=== PATIENT | male | born 1935 | race Caucasian/White ===

== ENCOUNTER 2018-08-02 13:06 | Inpatient (IN) | payer MEDICARE ==
[2018-08-02] MEDS ORDERED: Lorazepam 2 MG/ML VIAL ONE (13:22)
[2018-08-02 13:32] LABS: Bilirubin Negative (Negative); Blood, Urine Small (Negative); Clarity CLOUDY (Clear); Glucose, Urine (Dipstick) Negative (Negative); Leukocyte Large (Negative); Nitrite Negative (Negative); Protein, Urine (Dipstick) Negative (Neg-Trace); Urobilinogen 0.2 mg/dL (0.2-1.0)
[2018-08-02 13:34] LABS: Hyaline Casts/LPF 0-3 HYALINE CAST LPF (0-3 Hyaline); Pathc Cast-AUWi Flag 1.01 (0-2.49); RBC/HPF 0-3 HPF (0-3); Squamous Epithelial None Seen HPF (0-3); Yeast-AUWi Flag 105.4 (0-25.0)
[2018-08-02 13:42] LABS: Bacteria/HPF 2+ HPF (None Seen); Yeast-All Forms None Seen HPF (None Seen)
[2018-08-02 14:00] LABS: Hemoglobin 14.8 g/dL (14.0-18.0); Mean Corpuscular HGB CONC 32.4 g/dL (32.0-36.0); Mean Corpuscular Hemoglobin 31.9 pg (27.0-31.0); Mean Corpuscular Volume 98.4 fL (78.0-98.0); Mean Platelet Volume 8.8 fL (7.4-10.4); Platelet Count 173 thou/uL (130-400); RBC Distribution Width 12.4 % (11.5-14.5); Red Blood Cell (RBC) Count 4.66 mill/uL (4.70-6.10); White Blood Cell (WBC) Count 20.3 thou/uL (4.8-10.8)
[2018-08-02 14:13] LABS: ALT (SGPT) 30 U/L (8-55); AST (SGOT) 27 U/L (5-34); Albumin 4.4 g/dL (3.4-4.8); Alkaline Phosphatase 58 U/L (40-150); Anion Gap 15 mmol/L (10-20); BUN (Urea Nitrogen) 20 mg/dL (8.4-25.7); Bilirubin, Total 0.7 mg/dL (0.2-1.2); Calc. Creatinine Clearance 0 mL/min (70-130); Calcium 9.8 mg/dL (7.8-10.44); Carbon Dioxide 22 mmol/L (23-31); Chloride 105 mmol/L (98-107); Estimated GFR-MDRD 75; Globulin 3.4 g/dL (2.4-3.5); Glucose 117 mg/dL (83-110); Lipase 15 U/L (8-78); Potassium 3.9 mmol/L (3.5-5.1); Protein, Total 7.8 g/dL (5.8-8.1); Sodium 138 mmol/L (136-145)
[2018-08-02 14:18] LABS: Band 9 % (5-11); Eosinophils 1 % (0-10); Lymphocytes 15 % (21-51); MDiff Complete? YES; Metamyelocyte 2 % (0-0); Monocytes 3 % (0-10); Neutrophil 70 % (42-75); PLT Morphology Comment Appears Adequate
[2018-08-02] MEDS ORDERED: cefTRIAXone\\ROCEPHIN 1 GM VIAL ONE (14:36)
[2018-08-02] MEDS ORDERED: Acetaminophen 500 MG TAB ONE (14:46)
--- NOTE | 2018-08-02 15:30 | CT ---
CT ABDOMEN AND PELVIS WITHOUT CONTRAST: Date: 08/02/18 HISTORY: Right-sided abdominal pain and UTI. History of renal calculi. FINDINGS: Absence of oral and IV contrast reduces the sensitivity of exam, particularly for evaluation of solid organs and bowel. There are mild chronic changes in the right lung base. No pleural effusions are seen. No calcified ga llstones are identified. No free air or free fluid is noted in the abdomen or pelvis. There is a staghorn calculus in the left kidney measuring 3.2 cm in largest dimension. Associated pel vicaliceal dilatation is seen. No calculi seen in the right kidney, either ureter, or the urinary tyrone dder. No right-sided hydroureteronephrosis is identified. The prostate is enlarged. There are vascular calcifications without evidence of aneurysmal dilatation of the abdominal aorta. T here is colonic diverticulosis without evidence of diverticulitis. There are degenerative changes in the spine. IMPRESSION: 1. Obstructing staghorn calculus in the left kidney. 2. Colonic diverticulosis. 3. Prostatic enlargement. POS: MALGORZATA
--- NOTE | 2018-08-02 15:45 | HP ---
PRIMARY CARE PHYSICIAN: Dr. Xavier Eric. REASON FOR ADMISSION: Urinary tract infection, sepsis, altered mental status. HISTORY OF PRESENT ILLNESS: This is an 82-year-old male, who has underlying history of hypertension; diabetes, type 2; who has previously recurrent urinary tract infections. He has not seen a urologist in the past, but the patient was getting different, different antibiotic therapy from primary care physician. Lately, he was on Keflex. He was also tried with Omnicef and ciprofloxacin. The patient was marginally getting better, but since yesterday, patient was not feeling good. He was having a lot of abdominal pain predominantly. He reports left side as well as right side, more on the left side; pain, which is radiating to front side. He was also feeling a little bit feverish at home. He was also incoherent at home. He was getting more and more weak. He was having very poor appetite and that is why he called his son and his son brought him to emergency room for evaluation. In the emergency room the patient had fever, T-maximum 103.1. His routine blood tests showed leukocytosis with bandemia and his urinalysis is consistent with urinary tract infection. Patient was also confused when I saw in the emergency room. Before this, patient's quality of life is good. He was driving, he was able to do all daily livings by himself. ALLERGIES: IODINE and PENICILLIN. CURRENT HOME MEDICATIONS: Metformin; Lipitor, dose is not known. Patient also has Keflex, Omnicef, and ciprofloxacin bottles with him, which he was taking recently. PAST MEDICAL HISTORY: Diabetes, type 2; hypertension; dyslipidemia; history of nephrolithiasis, per patient's son. PAST SURGICAL HISTORY: Urethral stricture repair in the past. PAST PSYCHIATRIC HISTORY: Reviewed and negative. SOCIAL HISTORY: Patient drinks beer on a daily basis. He denies any smoking. He denies any other illicit drug abuse. FAMILY HISTORY: No strong family history of coronary artery disease, stroke, or cancer. EMERGENCY ROOM COURSE: Patient is given vancomycin, Rocephin, Tylenol 1 gram, IV fluid 1 liter, Ativan 1 mg x2, and IV fluid. REVIEW OF SYSTEMS: The following complete review of systems was negative, unless otherwise mentioned in the HPI or below: Constitutional: Weight loss or gain, ability to conduct usual activities. Skin: Rash, itching. Eyes: Double vision, pain. ENT/Mouth: Nose bleeding, neck stiffness, pain, tenderness. Cardiovascular: Palpitations, dyspnea on exertion, orthopnea. Respiratory: Shortness of breath, wheezing, cough, hemoptysis, fever, or night sweats. Gastrointestinal: Poor appetite, abdominal pain, heartburn, nausea, vomiting, constipation, or diarrhea. Genitourinary: Urgency, frequency, dysuria, nocturia. Musculoskeletal: Pain, swelling. Neurologic/Psychiatric: Anxiety, depression. Allergy/Immunologic: Skin rash, bleeding tendency. Above -mentioned review of systems is not reliable, because of altered mental status. PHYSICAL EXAMINATION: VITAL SIGNS: Currently, blood pressure 138/58, pulse 108, respiratory rate 22, temperature 103.1, saturation 100% on room air, weight 81.1 kilograms. GENERAL: The patient is currently tachycardic, hypertensive, febrile, incoherent. HEENT: Head: Normocephalic, atraumatic. Eyes: Pupils round, reactive to light. Extraocular muscle intact. ENT: Oropharynx within normal limit. Dry- appearing mucous membranes, no oral lesion, no pharyngeal erythema, no exudate. NECK: Supple, no JVD, no thyromegaly, no carotid bruit. LUNGS: Clear to auscultation without any rhonchi or rales. CARDIAC: S1 and S2 regular, tachycardia, systolic murmur present at aortic area. No gallop, no rub. ABDOMEN: Soft. Patient does have tenderness in the right side as well as left side. Suprapubic discomfort noted. BACK EXAMINATION: Bilateral CVA tenderness noted. Upper extremities, passive movement of all joints are normal. Lower extremities, no edema. Good distal pulsation. SKIN: No skin rash. HEMATOLOGICAL SYSTEM: No lymphadenopathy. NEUROLOGIC: Grossly nonfocal examination. His speech is normal. He moves all 4 limbs. Plantar bilateral flexor. PSYCHIATRIC: Anxious affect. SIGNIFICANT LABORATORY DATA: CT of the abdomen and pelvis reported as hydronephrosis on the left, hydroureter on the left, large renal calculi on the left, perinephric and periureteral fat stranding on the left, bladder wall thickening, enlarged prostate, perinephric fat stranding on the right as well. Urinalysis consistent with urinary tract infection. CBC: WBC 20.3, hemoglobin 14.8, platelets of 173. Lipase 15. BMP: Sodium 138, potassium 3.9, chloride 105, carbon dioxide 22, anion gap 15, BUN 20, creatinine 0.96, glucose 117, calcium 9.8. LFT: Protein 7.8, albumin 4.4, AST 27, ALT 30. Lactic acid 2.1. ASSESSMENT AND PLAN: 1. Acute encephalopathy, likely due to sepsis. 2. Sepsis with acute organ dysfunction. The patient has sepsis criteria with acute encephalopathy. Source of infection is urinary tract. 3. Left-sided obstructive uropathy with hydronephrosis and hydroureter, secondary to large left-sided nephrolithiasis. 4. Bilateral pyelonephritis. 5. Hypertension. 6. Diabetes, type 2. 7. Dyslipidemia. 8. Staghorn calculi PLAN: Full admission to telemetry floor. I spoke with Dr. Almaguer, Urology, outside production inspector. He will evaluate this patient later on today. The patient will be kept on broad-spectrum antibiotic therapy with meropenem and vancomycin. We will follow up on culture results and narrow down antibiotic spectrum. The patient will be given gentle IV fluid. We will obtain echocardiography for murmur, which we suspect from aortic stenosis murmur. We will watch for any fluid overload status. We will resume his selected home medication after verification of his home medicines. Hyperglycemia protocol treatment will be initiated. Deep venous thrombosis prophylaxis. Lovenox 40 mg subcu daily. Gastrointestinal prophylaxis, Pepcid 20 mg p.o. b.i.d. CODE STATUS: The patient is FULL CODE. Patient's son is surrogate decision maker. Disposition plan based on clinical course. We are expecting patient's stay in hospital more than 2 midnights. Plan of care discussed with the patient and patient's son at bedside in the emergency room. MTDD
[2018-08-02] MEDS ORDERED: Loratadine 10 MG TAB PO PRN (16:49)
[2018-08-02] MEDS ORDERED: Dextrose 50% Abboject 50 ML SYRINGE SLOW IVP PRN (16:49)
[2018-08-02] MEDS ORDERED: Artificial Tears 18 DROP/0.9 ML EA EYE PRN (16:49)
[2018-08-02] MEDS ORDERED: HumaLOG 300 UNITS/3 ML VIAL SC PRN ×2 (16:49)
[2018-08-02] MEDS ORDERED: HYDROcodone/Acetaminophen 5/325 mg Tablet PO PRN (16:49)
[2018-08-02] MEDS ORDERED: hydrALAZINE 20 MG/ML VIAL SLOW IVP PRN (16:49)
[2018-08-02] MEDS ORDERED: Chloraseptic Spray 180 ml Bottle PO PRN (16:49)
[2018-08-02] MEDS ORDERED: Zolpidem Tartrate 5 MG TAB PO PRN (16:49)
[2018-08-02] MEDS ORDERED: Dextrose 5% in Water 1,000 ML IV PRN (16:49)
[2018-08-02] MEDS ORDERED: Loperamide HCl 2 MG CAP PO PRN (16:49)
[2018-08-02] MEDS ORDERED: Ondansetron HCl/PF 4 MG/2 ML Vial IVP PRN (16:49)
[2018-08-02] MEDS ORDERED: Ondansetron ODT 4 MG TAB PO PRN (16:49)
[2018-08-02] MEDS ORDERED: Milk Of Magnesia 30 ML UDCUP PO PRN (16:49)
[2018-08-02] MEDS ORDERED: Diabetic Tussin 200 MG/10 ML UDCUP PO PRN (16:49)
[2018-08-02] MEDS ORDERED: Senokot 8.6 MG TAB PO PRN (16:49)
[2018-08-02] MEDS ORDERED: Morphine 2 MG/ML SYRINGE SLOW IVP PRN (16:49)
[2018-08-02] MEDS ORDERED: Eucerin (Mineral Oil/Petrolatum,White) 30 gm Jar TOP PRN (16:49)
[2018-08-02] MEDS ORDERED: Mag-Al 1200 mg/1200 mg/30 ML UDCUP PO PRN (16:49)
[2018-08-02] MEDS ORDERED: Nitroglycerin 0.4 MG TAB (25 Tab Bottle) SL PRN (16:49)
[2018-08-02] MEDS ORDERED: Sodium Chloride 0.65% Nasal 44 ML BOT EA NARE PRN (16:49)
[2018-08-02 17:19] VITALS: BMI 26.0
[2018-08-02 17:48] LABS: Lactic Acid 1.2 mmol/L (0.5-2.2)
[2018-08-02] MEDS: Sodium Chloride 0.9% 1,000 ML IV SCH (17:51)
[2018-08-02] MEDS: Famotidine 20 MG TAB PO SCH (20:42)
[2018-08-02] MEDS: Tamsulosin HCl 0.4 MG CAP PO SCH (20:42)
[2018-08-02] MEDS: MEROPENEM 1 GM/50 ML 1 GM in Premix Bag 1 BAG IVPB SCH (20:48)
[2018-08-02] MEDS ORDERED: Meropenem 1 GM in Sodium Chloride 0.9% 100 ML IVPB SCH (22:00)
--- NOTE | 2018-08-02 23:03 | CON ---
DATE OF INITIAL CONSULTATION: 08/02/2018 DATE OF HOSPITAL ADMISSION: 08/02/2018 REASON FOR CONSULTATION: 1. Urinary tract infection. 2. Sepsis. 3. Altered mental status. 4. Staghorn left renal stone. HISTORY OF PRESENT ILLNESS: Mr. 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 He has not been followed by any [facility] urologist, and he had all of his urology care performed in [place]. The patient has lived in [facility] in [place] for about 10-15 years. He currently resides in a cottage adjacent o his son's house. The patient apparently has been having troubles with incomplete bladder emptying, urinary frequency and more or less continuous urinary incontinence for some time. Today, the patien t was noted to be febrile and have altered mental status and was brought to the emergency department for evaluation. He has a known left-sided kidney stone, which the son was told was nonoperable in past. Mr. Mills does appear to have a degree of altered mental status, was able to say some of the details regarding his history. He is not able to provide a complete review of systems by himself, however. ALLERGIES: IODINE and PENICILLIN. HOME MEDICINE LIST: Includes the followin. Metformin. 2. Lipitor. 3. The patient also has recent bottles for Keflex, Omnicef and ciprofloxacin, which he has taken in the last few months. 4. There were no prostate specific medications brought with him to the hospital. PAST MEDICAL HISTORY: The patient has diabetes mellitus type 2, hypertension, dyslipidemia, history of left-sided nephrolithiasis. PAST SURGICAL HISTORY: Urethral stricture repair was performed in the past after a fall onto a joist . A foreskin graft was utilized to perform the urethroplasty. PAST PSYCHIATRIC HISTORY: Negative. 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 He is not a current cigarette smoker, but was up to two p acks per day smoker and quit about 20 years ago. In total, he probably has more than 50 pack years a t minimum. There is no history of illicit drug abuse. He does consume at least one beer per day. FAMILY MEDICAL HISTORY: There is no clear family history of prostate cancer or genitourinary disorde rs. There is no strong family history of coronary artery disease. REVIEW OF SYSTEMS: The patient was not able to complete with me. He did receive some Ativan immedia tely prior to my exam and this may have interfered with the review of systems. PHYSICAL EXAMINATION: VITAL SIGNS: ER T-max 103, blood pressure 138/58, pulse 108, respiratory rate 22. GENERAL: This is a patient, who appears ill. At my evaluation of him, he is not able to make much s ense by himself. The patient's son acts as primary historian. HEENT: Head, eyes, ears, nose and throat: The patient is normocephalic. I note no contusions or o ther injuries. Sclerae are anicteric. Extraocular movements are intact. Oropharynx is clear. The patient appears to be relatively dry. NECK: Supple. There is no carotid bruit, but I do hear a systolic ejection murmur in the patient's neck. LUNGS: Clear to auscultation bilaterally. CARDIAC: A systolic ejection type murmur is present in the aortic area suggestive of an aortic steno sis. ABDOMEN: Soft and nontender superiorly. The patient reports that he has some discomfort in the supr apubic area. He specifically denies flank pain on either side. He reports urethral discomfort. GENITOURINARY EXAMINATION: Testes are present bilaterally in the scrotum. They are smooth, anodular , nontender. There is no evidence of inguinal canal hernia. Phallus has undergone a circumcision as an adult. Retraction of foreskin finds urethral meatus with urine present. No evidence of blood. The patient is complaining that he is not able to empty his bladder, and he complains of needing a ur inal frequently. Patient was sterilely prepped and draped during the course of examination and a Fol ey catheter was placed. There was no urethral type resistance. There was resistance at the prostate or the membranous urethral level. There was no blood returned. Following placement of a Benitez cath eter, which was 16 Indonesian standard catheter, we recovered about 500 mL of urine, this does not appear to be grossly cloudy on the initial return. RECTAL: Digital rectal examination was performed and finds an indurated prostate, which measures abo ut 30-35 grams in size. It is suspicious for malignancy with marked induration felt on both sides. If the patient had a biopsy and cancer was found, I would list this as a T2c or possibly even T3 lesi on. At the present time, we have no pathology to go on more PSA. BACK EXAMINATION: There is no specific costovertebral angle tenderness on my exam. The patient has had some Ativan prior to my examination of him. Skin appears to be free of lesions. There were no b ladder neck lesions present. NEUROLOGIC: The patient is able to speak, but has somewhat garbled speech. He is able to move all f our limbs. Gait was not assessed. LABORATORY STUDIES: Patient's white count markedly elevated at 20,300, patient has 9% bands and 70% neutrophils, hemoglobin is 14.8 with hematocrit of 45.8. Serum chemistries show the patient to be de hydrated with a blood urea nitrogen of 20, creatinine of 0.96 indicating a BUN to creatinine ratio in excess of 20. Sodium is normal at 138 as his potassium at 3.9, chloride is normal at 105, carbon di oxide is low at 22, probably due to tachypnea. Glucose 117. Liver enzymes are all within normal osman its. A urinalysis was performed and finds a urine gravity of 1.010. There is a small amount of urine bloo d, large amount of leukocyte esterase, greater than 50 white cells per high power field, 2+ urine coleman teria is present. No urine yeast. Review of culture reports from previous visits showed presence of Aerococcus urinae in 2 cultures from 07/16/2018 and 06/29/2018. These findings provide some guidanc e for antibiotic therapy for the patient. Generally, this organism is pansensitive to PENICILLINS, a nd although the patient is allergic to PENICILLIN, more advanced PENICILLINS may be useful. RADIOLOGIC STUDIES: A CT scan of the abdomen and pelvis was performed on 08/02/2018 at 1354 hours. This study demonstrates the presence of a large left-sided staghorn calculus, which fills the lower p ole and portions of the renal pelvis, this is up to 3.2 cm in diameter. There appears to be some deg ree of hydronephrosis present. The patient's prostate gland is observed to be enlarged. There is co lonic diverticulosis present. My review of the study shows no stranding about the left kidney. The patient's bladder is incomplete ly empty. There is no evidence of additional stones in the ureters on either side. No stones are se en in the right kidney. I note a degree of dilation of the patient's left ureter. This extends to t he level of bladder. This could indicate a refluxing ureter on that side. ASSESSMENT AND PLAN: 1. Apparent sepsis with probable urinary origin, likely due to the known Aerococcus urinae organism. The patient would be appropriately treated on meropenem or other penicillin such as piperacillin an d tazobactam. The patient does have a known PENICILLIN allergy, which must be observed for that. 2. Questions regarding drainage of the patient's collecting system. The patient does have outlet ob struction. He has several weeks of symptoms that are directly related to obstruction of the lower ur inary tract. I believe the patient's prostate is the origin of this, although he has a history of ur ethral stricture disease. I did not note that from the passage of the catheter today, he can be cyst oscopically evaluated to further evaluate for that, this could be delayed until after his discharge. The patient's prostate gland is markedly indurated and suggestive of prostate cancer. PSA records f rom his primary physician, Xavier Eric would be worthwhile. A PSA may be also worthwhile to obtain w kanwal here. 3. Staghorn calculus of the left kidney. The patient has relatively chronic-appearing dilation of l eft collecting system. There is no stranding about the kidney. The patient specifically denies any flank pain on either side today. He is only focused on suprapubic discomfort, which appears to be se condary to urinary retention. He did get some relief from placement of the catheter today. I think this patient would best be managed by stabilization overnight and consideration of a cystoscopic plac ement of a stent tomorrow. The patient is acutely ill, and an outlet obstruction has been acutely ma naged with an indwelling catheter. He may be managed with delayed cystoscopic placement of stent. 4. Prostate cancer concerns. Patient probably should undergo prostate needle biopsy given the outle t obstruction, this can be delayed to the outstation state as well. Over 85 minutes of initial consultation and assessment time was spent and evaluation and assessment o f this patient today exclusive of any procedures performed.
[2018-08-03] MEDS: Enoxaparin Sodium 40 MG/0.4 ML SYRINGE SC SCH (02:27)
[2018-08-03] MEDS: Sodium Chloride 0.9% 1,000 ML IV SCH (02:50)
[2018-08-03] MEDS: MEROPENEM 1 GM/50 ML 1 GM in Premix Bag 1 BAG IVPB SCH ×3 (04:52→20:39)
[2018-08-03 05:06] LABS: #Basophils 0.1 thou/uL (0.0-0.2); #Lymphocytes 2.5 thou/uL (1.20-3.40); #Monocytes 2.1 thou/uL (0.11-0.59); #Neutrophils 22.9 thou/uL (1.40-6.50); %Basophils 0.3 % (0.0-1.0); %Eosinophils 0.2 % (0.0-10.0); %Monocytes 7.5 % (0.0-10.0); Hemoglobin 13.2 g/dL (14.0-18.0); Mean Corpuscular HGB CONC 31.3 g/dL (32.0-36.0); Mean Corpuscular Volume 99.2 fL (78.0-98.0); Mean Platelet Volume 8.6 fL (7.4-10.4); Platelet Count 150 thou/uL (130-400); RBC Distribution Width 12.5 % (11.5-14.5); Red Blood Cell (RBC) Count 4.26 mill/uL (4.70-6.10); White Blood Cell (WBC) Count 27.6 thou/uL (4.8-10.8)
[2018-08-03 05:30] LABS: ALT (SGPT) 19 U/L (8-55); AST (SGOT) 18 U/L (5-34); Albumin 3.5 g/dL (3.4-4.8); Alkaline Phosphatase 44 U/L (40-150); Anion Gap 10 mmol/L (10-20); BUN (Urea Nitrogen) 12 mg/dL (8.4-25.7); Bilirubin, Total 0.9 mg/dL (0.2-1.2); Calc. Creatinine Clearance 78 mL/min (70-130); Calcium 8.3 mg/dL (7.8-10.44); Carbon Dioxide 21 mmol/L (23-31); Chloride 111 mmol/L (98-107); Estimated GFR-MDRD 87; Globulin 2.8 g/dL (2.4-3.5); Glucose 154 mg/dL (83-110); Potassium 3.3 mmol/L (3.5-5.1); Protein, Total 6.3 g/dL (5.8-8.1); Sodium 139 mmol/L (136-145)
[2018-08-03] MEDS: NS 0.9% w/ 20 MEQ KCL 1,000 ML/1,000 ML BAG IV SCH ×2 (08:21→17:05)
[2018-08-03] MEDS: Fish Oil 1,000 MG CAP PO SCH (08:25)
[2018-08-03] MEDS: Atorvastatin Calcium 40 MG TAB PO SCH (08:25)
[2018-08-03] MEDS: Multivit, Therapeutic 1 TAB PO SCH (08:25)
[2018-08-03] MEDS: Ubidecarenone 50 MG CAP PO SCH (08:25)
[2018-08-03] MEDS: Saccharomyces boulardii 250 MG CAP PO SCH (08:25)
[2018-08-03] MEDS: Famotidine 20 MG TAB PO SCH ×2 (08:25→20:39)
--- NOTE | 2018-08-03 10:12 | PDOC.PN ---
- Subjective Encounter Start Date: 08/03/18 Encounter Start Time: 08:40 -: old records requested/rev Patient seen and examined. No new complaints. No overnight events pt has sore throat, he has no fever today, he is more alert today, family bedside - Objective Resuscitation Status: Resuscitation Status FULL:Full Resuscitation MAR Reviewed: Yes Vital Signs & Weight: Vital Signs (12 hours) Temp Pulse Resp BP Pulse Ox 08/03/18 08:00 95 08/03/18 07:18 97.6 F 84 16 124/69 95 08/03/18 03:39 98.4 F 95 18 117/66 94 L 08/03/18 00:00 98.9 F 97 18 100/54 L 97 Weight Weight 181 lb 7 oz I&O: 08/02/18 08/03/18 08/04/18 06:59 06:59 06:59 Intake Total 2065 Output Total 1775 Balance 290 Result Diagrams: 08/03/18 04:27 08/03/18 04:27 Additional Labs: Accuchecks 08/03/18 08/02/18 08/02/18 04:54 20:49 18:08 POC Glucose 171 H 116 H 160 H Phys Exam - Physical Examination Constitutional: NAD HEENT: PERRLA, moist MMs, sclera anicteric Neck: no JVD, supple Respiratory: no wheezing, no rales, no rhonchi Cardiovascular: RRR, no rub SM+ at aortic area Gastrointestinal: soft, no distention, positive bowel sounds cva discomfort reduced Musculoskeletal: no edema, pulses present Neurological: non-focal, normal sensation, moves all 4 limbs Psychiatric: normal affect Skin: no rash, normal turgor Dx/Plan (1) Complicated UTI (urinary tract infection) Code(s): N39.0 - URINARY TRACT INFECTION, SITE NOT SPECIFIED Status: Acute (2) Encephalopathy acute Code(s): G93.40 - ENCEPHALOPATHY, UNSPECIFIED Status: Acute (3) Hypokalemia Code(s): E87.6 - HYPOKALEMIA Status: Acute (4) Sepsis with acute organ dysfunction Code(s): A41.9 - SEPSIS, UNSPECIFIED ORGANISM; R65.20 - SEVERE SEPSIS WITHOUT SEPTIC SHOCK Status: Acute (5) Aortic stenosis Code(s): I35.0 - NONRHEUMATIC AORTIC (VALVE) STENOSIS Status: Chronic (6) BPH (benign prostatic hyperplasia) Code(s): N40.0 - BENIGN PROSTATIC HYPERPLASIA WITHOUT LOWER URINRY TRACT SYMP Status: Chronic (7) Colon, diverticulosis Code(s): K57.30 - DVRTCLOS OF LG INT W/O PERFORATION OR ABSCESS W/O BLEEDING Status: Chronic (8) Diabetes type 2, controlled Code(s): E11.9 - TYPE 2 DIABETES MELLITUS WITHOUT COMPLICATIONS Status: Chronic (9) Dyslipidemia Code(s): E78.5 - HYPERLIPIDEMIA, UNSPECIFIED Status: Chronic (10) Staghorn calculus Code(s): N20.0 - CALCULUS OF KIDNEY Status: Chronic - Plan cont current plan of care, plan discussed w/ family, continue antibiotics * continue meropenam and vancomycin, will consider dc vancomycin tomorrow if culture negative * check strep pharyngeal test * discussed with son * continue IVF * follow culture * urology on case. * replace potassium * today somehow wbc is worse but pt clinically better than yesterday * medication reviewed as below * symptomatic treatment Review of Systems - Review of Systems Constitutional: weakness. negative: fever, chills, sweats, malaise, other ENT: Throat Pain. negative: Ear Pain, Ear Discharge, Nose Pain, Nose Discharge , Nose Congestion, Mouth Pain, Mouth Swelling, Throat Swelling, Other Respiratory: negative: Cough, Dry, Shortness of Breath, Hemoptysis, SOB with Excertion, Pleuritic Pain, Sputum, Wheezing Cardiovascular: negative: chest pain, palpitations, orthopnea, paroxysmal nocturnal dyspnea, edema, light headedness, other Gastrointestinal: negative: Nausea, Vomiting, Abdominal Pain, Diarrhea, Constipation, Melena, Hematochezia, Other Genitourinary: negative: Dysuria, Frequency, Incontinence, Hematuria, Retention , Other Musculoskeletal: negative: Neck Pain, Shoulder Pain, Arm Pain, Back Pain, Hand Pain, Leg Pain, Foot Pain, Other Skin: negative: Rash, Lesions, Cody, Bruising, Other - Medications/Allergies Allergies/Adverse Reactions: Allergies Allergy/AdvReac Type Severity Reaction Status Date / Time Iodine and Iodide Containing Allergy Verified 08/02/18 17:04 Produc Penicillins Allergy Verified 08/02/18 17:31 Medications: Current Medications Acetaminophen (Tylenol) 650 mg PO Q4H PRN PRN Reason: Headache/Fever or Pain Hydrocodone Bitart/Acetaminophen (Lamont 5/325) 1 tab PO Q4H PRN PRN Reason: Moderate Pain (4-6) Al Hydroxide/Mg Hydroxide (Maalox) 30 ml PO Q6H PRN PRN Reason: Heartburn or Indigestion Artificial Tears (Tears Naturale) 0 drop EA EYE PRN PRN PRN Reason: Dry Eyes Atorvastatin Calcium (Lipitor) 80 mg PO DAILY [facility] Last Admin: 08/03/18 08:25 Dose: Not Given Cholecalciferol (Vitamin D3) 1,000 units PO DAILY [facility] Last Admin: 08/03/18 08:25 Dose: Not Given Coenzyme Q10 (Coenzyme Q10) 200 mg PO DAILY [facility] Last Admin: 08/03/18 08:25 Dose: Not Given Dextrose/Water (Dextrose 50%) 25 gm SLOW IVP PRN PRN PRN Reason: Hypoglycemia Enoxaparin Sodium (Lovenox) 40 mg SC 0900 [facility] Last Admin: 08/03/18 02:27 Dose: Not Given Famotidine (Pepcid) 20 mg PO BID [facility] Last Admin: 08/03/18 08:25 Dose: Not Given Fish Oil (Fish Oil) 1,000 mg PO DAILY [facility] Last Admin: 08/03/18 08:25 Dose: Not Given Glucagon (Glucagon) 1 mg IM PRN PRN PRN Reason: Hypoglycemia Guaifenesin (Robitussin Sf) 200 mg PO Q4H PRN PRN Reason: Cough Hydralazine HCl (Apresoline) 10 mg SLOW IVP Q4H PRN PRN Reason: Systolic BP > 180 Dextrose/Water (D5w) 1,000 mls @ 0 mls/hr IV .Q0M PRN PRN Reason: Hypoglycemia Meropenem 1 gm/ Device 50 mls @ 100 mls/hr IVPB Q8HR [facility] Last Admin: 08/03/18 04:52 Dose: 50 mls Vancomycin HCl 1.25 gm/ Sodium (Chloride) 250 mls @ 166.667 mls/hr IVPB 1600 JASPREET Potassium Chloride/Sodium Chloride (Ns 0.9% W/ 20 Meq Kcl) 1,000 ml in 1,000 mls @ 125 mls/hr IV .Q8H [facility] Last Admin: 08/03/18 08:21 Dose: 1,000 mls Insulin Human Lispro (Humalog) 0 units SC .MODERATE SLIDING SC PRN PRN Reason: Moderate Correctional Scale Insulin Human Lispro (Humalog) 0 units SC .BEDTIME SLIDING SC PRN PRN Reason: Bedtime Correctional Scale Loperamide HCl (Imodium) 2 mg PO PRN PRN PRN Reason: Diarrhea/Loose Stools Loratadine (Claritin) 10 mg PO DAILYPRN PRN PRN Reason: Sinus Symptoms Magnesium Hydroxide (Milk Of Magnesium) 30 ml PO DAILYPRN PRN PRN Reason: Constipation Mineral Oil/White Petrolatum (Eucerin Cream) 0 gm TOP BIDPRN PRN PRN Reason: Dry Skin Miscellaneous Medication (Pharmacy To Dose) 1 each IVPB ONE PRN PRN Reason: Pharmacy to dose Stop: 08/12/18 16:50 Morphine Sulfate (Morphine) 2 mg SLOW IVP Q4H PRN PRN Reason: Pain Multivitamins (Theragran) 1 tab PO DAILY [facility] Last Admin: 08/03/18 08:25 Dose: Not Given Nitroglycerin (Nitrostat) 0.4 mg SL Q5MIN PRN PRN Reason: Chest Pain Ondansetron HCl (Zofran Odt) 4 mg PO Q6H PRN PRN Reason: Nausea/Vomiting Ondansetron HCl (Zofran) 4 mg IVP Q6H PRN PRN Reason: Nausea/Vomiting Melatonin 10 Mg Tab ([Hm Med]) 0 each PO [facility] Phenol (Chloraseptic Adrian 180 Ml Bot) 0 ml PO PRN PRN PRN Reason: Sore Throat Saccharomyces Boulardii (Florastor) 250 mg PO DAILY [facility] Last Admin: 08/03/18 08:25 Dose: Not Given Senna (Senokot) 2 tab PO HSPRN PRN PRN Reason: Constipation Sodium Chloride ([place] Nasal Adrian 0.65%) 0 ml EA NARE QIDPRN PRN PRN Reason: Nasal Congestion Tamsulosin HCl (Flomax) 0.4 mg PO [facility] Last Admin: 08/02/18 20:42 Dose: 0.4 mg Zolpidem Tartrate (Ambien) 5 mg PO HSPRN PRN PRN Reason: Insomnia
[2018-08-03] MEDS: Acetaminophen 325 MG TAB PO PRN (11:43)
[2018-08-03] MEDS ORDERED: PHENYLEPHRINE-NS 100 MCG/ML 10 ML SYRINGE ONE (12:10)
[2018-08-03] MEDS ORDERED: PROPOFOL 200 MG/20 ML VIAL ONE (12:10)
[2018-08-03] MEDS ORDERED: Lidocaine 1% PF 5 ML VIAL ONE (12:10)
[2018-08-03] MEDS ORDERED: Ioversol 68 % 50 ML VIAL ONE ×2 (13:17→15:00)
[2018-08-03] MEDS ORDERED: Fentanyl 100 MCG/2 ML VIAL ONE (14:03)
[2018-08-03] MEDS ORDERED: Phenylephrine HCL 10 MG/ML VIAL ONE (14:03)
[2018-08-03] MEDS ORDERED: B & O 30 MG SUPP ONE (15:05)
[2018-08-03] MEDS ORDERED: Ondansetron HCl/PF 4 MG/2 ML Vial IVP PRN (15:12)
--- NOTE | 2018-08-03 15:41 | PRG ---
DATE OF SERVICE: 08/03/2018 DATE OF HOSPITAL ADMISSION: 08/02/2018 INITIAL REASON FOR CONSULTATION: 1. Possible urosepsis. 2. Urinary retention. 3. Left-sided staghorn calculus. 4. Right-sided flank pain. BRIEF HISTORY: Mr. Dm Mills is a very pleasant 82-year-old retired white male formally worked for [employer] who presented to Emergency Department with altered mental status. He has had several mo nths of slow urinary stream, urinary frequency and frequent small volume voids. The patient had a ge neral presentation compatible with urosepsis. The patient underwent CT scanning which demonstrated l arge staghorn calculus and admission white count of over 20,000. The patient was admitted and placed on meropenem IV. INTERVAL EVENTS: The patient feels much better today after hydration and antibiotic therapy administ ration. The patient has opted to proceed to the operating room for cystoscopy and left-sided stent p lacement. We also plan on evaluating his right side since he is having some right-sided symptoms. H is CT scan did demonstrate colonic diverticulosis without evidence of diverticulitis. PHYSICAL EXAMINATION: VITAL SIGNS: Patient was febrile at home, but has been afebrile since 16:49 yesterday when his tempe rature was 102.1 degrees F. Present time, patient's current vital signs show a current temperature o f 98.8, pulse 82, respirations 16, O2 saturations 95%, blood pressure is 113/58. GENERAL: This is a pleasant, awake, alert, white male. He no longer has altered mental status. He is able to respond appropriately, does appear to have a degree of dementia. He thinks he is a 64-yea r-old when he is actually 82. Other than his, he seems to be doing reasonably well. HEAD, EYES, EARS, NOSE, AND THROAT: Extraocular movements are intact. Sclerae are anicteric. Oroph arynx is clear. NECK: Supple. LUNGS: Clear bilaterally. CARDIAC: There is a systolic ejection murmur. ABDOMEN: Soft, obese and nontender. BACK: Patient has bilateral flank pain, tenderness, more intense on the right than the left curiousl y. LABORATORY DATA AND IMAGING DATA: White count today is increased to 27.62 thousand, percent neutroph ils 83%, ANC elevated at 22.9. These laboratories were obtained at 04:00 this morning. Serum chemis try shows current potassium of 3.3, chloride 111, carbon dioxide of 21 and sodium of 139. Glucose wa s 154 and most recent glucose test at that point care was 108. The patient's PSA is 4.7. This could reflect an acute infective process, but may also reflect the indurated prostate gland we found on ph ysical examination. ASSESSMENT AND PLAN: 1. Left-sided staghorn calculus. The patient will need to undergo treatment of that in anticipation of upcoming procedures for his heart. The patient at the present time needs acute drainage of his l eft collecting system and we will place a stent to bypass any obstruction. Due to the patient's righ t-sided pain complaints, we did recommend performing retrograde on the right side as well. We tried to do this with a cone tip. There is an obstruction seen, we will do bilateral stenting. 2. Systolic ejection murmur compatible with aortic stenosis. I have discussed the patient's case wi th Dr. Welch, his photography instructor as well as Dr. Eduardo Quintana, anesthesiologist for this case and we we re in general agreement. He will need some type of intervention for that in the near future. As the patient appears to have a staghorn calculus, he will probably need to have that treated since this c ould be a potential source for infection of an implant such as TAVR valve or other type of implant. 3. Urinary outlet obstruction. This likely is due to a prostate origin based on clinical examinatio n yesterday. We will examine for possible urethral stricture disease as well on today's examination cystoscopically. Over 35 minutes of consultation assessment time was spent in evaluation and treatment of this patient today exclusive of any procedures performed.
--- NOTE | 2018-08-03 16:56 | RAD ---
RETROGRADE IVP: HISTORY: Left stent placement. COMPARISON: None. FINDINGS: Intraprocedure fluoroscopy is provided. A total of 11 fluoroscopic images are submitted for interpre tation. There is a staghorn calculus projecting over the left lower pole intrarenal collecting system. Retro grade opacification of the left lower pole collecting system demonstrates dilatation of the mid to up per pole calyces. A left ureteral stent was placed. Retrograde opacification of the right intra- an d extrarenal collecting system is unremarkable. The patient voided spontaneously and the urethra is unremarkable. IMPRESSION: Left ureteral stent. POS: MALGORZATA
[2018-08-03] MEDS: Vancomycin HCl 1.25 GM in Sodium Chloride 0.9% 250 ML 250 ML IVPB SCH (17:05)
--- NOTE | 2018-08-03 17:35 | CON ---
DATE OF CONSULTATION: 08/03/2018 CARDIOLOGY CONSULTATION REASON FOR CONSULTATION: Aortic stenosis. HISTORY OF PRESENT ILLNESS: Mr. Mills is a very pleasant 82-year-old white gentleman who comes to [facility] for altered mentation. He was found to be septic and had a complicated urinary tract infe ction with staghorn calculi and had a stent placed earlier today. Everything went well. He denies a ny chest pain, tightness, pressure, no shortness of breath. He states that he continues to go to the gym. He was actually lost to follow up as he tells me his back in February and he has been dealing with that. Last time I saw him was back in January of this year. He had a severe aortic stenosis with a valve area of 0.7 mean gradient of 40 mmHg and max velocity of 4.1 meters per second . Repeat echo today shows similar finding severe aortic stenosis is still. PAST MEDICAL HISTORY: 1. Type 2 diabetes. 2. Hypertension. 3. Hyperlipidemia. 4. Nephrolithiasis in the past. 5. Severe aortic stenosis. PAST SURGICAL HISTORY: Urethral stricture repair. SOCIAL HISTORY: Drinks beer on a daily basis. No tobacco or drug use. ALLERGIES: IODINE and PENICILLIN. FAMILY HISTORY: Noncontributory. REVIEW OF SYSTEMS: A 12-point review of systems was done and it is all negative except as stated per history of present illness. PHYSICAL EXAMINATION: VITAL SIGNS: Temperature 97.8, on admission it was 103.1, pulse is 79, respiration rate 16, satting 94% on room air, blood pressure 120/65. GENERAL: Awake, alert, oriented x3, in no distress. HEENT: Normocephalic, atraumatic. NECK: Supple. LUNGS: Clear. CARDIOVASCULAR: S1, S2, no S3 or S4, no murmurs. There is a grade 3/6 systolic murmur in the right sternal border, late peaking related to the rest of the precordium. ABDOMEN: Soft with bowel sounds. EXTREMITIES: 1+ edema. SKIN: Warm and dry. LABORATORY DATA: Laboratory work was reviewed. White count of 20 on admission, up to 27 this mornin g, hemoglobin of 13.2, hematocrit 42, platelet count of 150. Chemistry was reviewed. Potassium was 3.3. PSA was 4.7. Glucose was 154. UA; large leukocyte esterase, greater than 50 white cells and 2 + bacteria. IMAGING DATA: Echocardiogram was reviewed, normal LV function, EF of 55%-60%. There is grade I/III diastolic dysfunction and severe aortic valve stenosis with valve area 0.9 cm2, mean gradient of 42 m mHg and max velocity of 4.1 meters per second. ASSESSMENT AND PLAN: 1. Severe aortic stenosis. 2. Urinary tract infection, sepsis. 3. Staghorn calculi on the right. PLAN: 1. Continue therapies as planned for his renal colic. 2. Would recommend judicious use of fluid as he will easily get volume overload. I will actually st op the current fluids right now. His potassium needs to be replaced, needs to be by the oral route, not IV. 3. Once his renal issues are resolved and there is no more evidence of acute infectious process, we may begin talking about proceeding with valve replacement. We will have to start with a heart cathet erization. This will likely happen as an inpatient and most likely in the next few months. Thank you for letting us to participate in the care of your patient. We will follow.
[2018-08-03] MEDS: Melatonin 3 MG TAB PO SCH (20:38)
[2018-08-03] MEDS: Tamsulosin HCl 0.4 MG CAP PO SCH (20:39)
--- NOTE | 2018-08-03 22:15 | OP ---
DATE OF HOSPITAL ADMISSION: 08/02/2018 DATE OF PROCEDURE: 08/03/2018 PREOPERATIVE DIAGNOSES: 1. Left ureteropelvic junction obstruction. 2. Left staghorn calculus and 20.0. 3. Elevated prostate specific antigen and bilateral prostate induration. 4. Presumed aortic valve stenosis. 5. Urethral stricture, status post urethroplasty with possible recurrence. POSTOPERATIVE DIAGNOSES: 1. Left ureteropelvic junction obstruction. 2. Left staghorn calculus and 20.0. 3. Elevated prostate specific antigen and bilateral prostate induration. 4. Presumed aortic valve stenosis. 5. Urethral stricture, status post urethroplasty with possible recurrence. 6. No evidence of right ureteral obstruction. OPERATIVE PROCEDURES 1. Cystourethroscopy with left-sided stent placement, 28098, left. 2. Bilateral retrograde pyelography, 57867-[id number]. 3. Retrograde urethrogram, 57153. SURGEON: Anand Almaguer MD TOOL GRINDING TECHNICIAN SURGEON: None. ANESTHESIA: General by LMA. ESTIMATED BLOOD LOSS: Zero mL COMPLICATIONS: None. DRAINS AND TUBES: 1. The patient has a 4.5-Faroese x 28-cm left double-J ureteral stent. 2. An 18-Faroese Benitez catheter to gravity bag. 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 We did place a Benitez catheter. He does have a past history of a fall wher e he has perineum struck a joist resulting in a urethral injury. He did undergo a subsequent urethro plasty in [place], so the patient otherwise is really no significant urinary history except for ki dney stones. He has had known left-sided staghorn calculus. The patient presented with altered ment al status and fever to 103 degrees yesterday. Patient was evaluated in the emergency department. I did place a Benitez catheter and noted some resistance prostate. The patient indurated prostate gland. He did undergo PSA testing, which shows elevated PSA of 4.7 nanograms per mL. Patient had an eleva nga white count at admission and underwent IV antibiotic administration felt significantly better tod ay with resolution of his fever, but progressive rise in his white count and ANC. Due to that and co ncerned for left ureteropelvic junction obstruction secondary to staghorn calculus, he opted to proce ed to the operating room for cystoscopy and left-sided stent placement. Due to the patient's history of urethral stricture, we decided to perform a retrograde urethrogram as well as a portion of the pr ocedure documented degree of stricturing. TECHNICAL PROCEDURE: The patient was appropriately identified in the preoperative holding area. We utilized four types of identification including arm band, the idea of the family was self-identificat ion and date of . Patient was subsequently transported to the operative suite, placed in the arteaga pine position on a cystofluorographic table. General anesthesia was established using LMA airway. T he patient was repositioned in the supine lithotomy position with NGA hose and sequential compression devices in place and underwent a sterile prep and drape. Following appropriate timeout, we proceede d with cystoscopic evaluation of the patient using a 22-Faroese cystoscope sheath and a 30-degree lens . The patient's indwelling Benitez catheter was removed prior to the prep. Cystoscopic evaluation of the patient's bladder found a reasonably significant trabeculation of the patient's bladder compatibl e with grade 3 trabeculation of the bladder. The bladder appeared to be of slightly reduced capacity . On examination of the patient's urethra distally, we found no strictures in the distal portion of the patient's urethra which was widely patent. Just proximal to the patient's true urinary sphincter , we encountered a layer of tissue which appeared to be possible for skin graft. This area was relat ively patent, possibly had offered a degree of resistance. The patient's prostate gland was relative ly stiff. Bladder was examined. I did not observe any significant efflux from the patient's left ur eteric opening. We performed retrograde pyelography, which demonstrated a left renal staghorn calcul us involving the lower pole UPJ area and lateral and lower pole calices. We did pass a wire above th is then placed a 4.5-Faroese x 28-cm stent. We did recover a urine specimen from above the stone for culture purposes as well. We then turned our attention to the right side on the patient. On the rig ht side, we performed a cone-tipped retrograde pyelogram. Patient had complaints of right-sided flan k pain symptoms in addition to his known left staghorn calculus. Retrograde pyelography here did not find any evidence of narrowing stricture or recent passage of stone or any filling defects suggestiv e of malignancy or other stricture or other obstruction in the urinary tract. The patient's right co llecting system drain correctly without any evidence of obstruction. At this point, we performed a r etrograde urethrogram study, then documenting the degree of narrowing within the patient's urethra. We performed a fill evaluation and subsequently placed an 18-Faroese Benitez catheter into the patient's bladder without undue difficulty. Most of his resistance most likely in the area of the patient's p revious urethroplasty and within the patient's prostate gland, which appeared to be relatively stiff. The patient's bladder was then drained and placed to Benitez catheter bag. He tolerated the procedur e well and was transported to postoperative recovery area in good condition and had stable vital sign s in the recovery area. COMPLICATIONS: None evident. DRAINS AND TUBES: A 4.5-Faroese x 28-cm left stent and an 18-Faroese Benitez catheter to gravity bag.
[2018-08-04] MEDS: MEROPENEM 1 GM/50 ML 1 GM in Premix Bag 1 BAG IVPB SCH ×3 (05:00→22:55)
[2018-08-04 05:52] LABS: #Monocytes 1.1 thou/uL (0.11-0.59); %Eosinophils 0.2 % (0.0-10.0); %Lymphocytes 8.9 % (21.0-51.0); %Monocytes 4.9 % (0.0-10.0); Mean Corpuscular HGB CONC 30.7 g/dL (32.0-36.0); Mean Corpuscular Hemoglobin 30.9 pg (27.0-31.0); Mean Platelet Volume 9.1 fL (7.4-10.4); Platelet Count 147 thou/uL (130-400); RBC Distribution Width 12.6 % (11.5-14.5); Red Blood Cell (RBC) Count 4.19 mill/uL (4.70-6.10); White Blood Cell (WBC) Count 22.1 thou/uL (4.8-10.8)
[2018-08-04 05:56] LABS: Anion Gap 11 mmol/L (10-20); BUN (Urea Nitrogen) 14 mg/dL (8.4-25.7); Calc. Creatinine Clearance 87 mL/min (70-130); Calcium 8.7 mg/dL (7.8-10.44); Carbon Dioxide 21 mmol/L (23-31); Chloride 114 mmol/L (98-107); Estimated GFR-MDRD Greater than 90; Glucose 135 mg/dL (83-110); Potassium 3.9 mmol/L (3.5-5.1); Sodium 142 mmol/L (136-145)
[2018-08-04] MEDS: Enoxaparin Sodium 40 MG/0.4 ML SYRINGE SC SCH (08:28)
[2018-08-04] MEDS: Atorvastatin Calcium 40 MG TAB PO SCH (08:29)
[2018-08-04] MEDS: Ubidecarenone 50 MG CAP PO SCH (08:29)
[2018-08-04] MEDS: Fish Oil 1,000 MG CAP PO SCH (08:29)
[2018-08-04] MEDS: Saccharomyces boulardii 250 MG CAP PO SCH (08:29)
[2018-08-04] MEDS: Multivit, Therapeutic 1 TAB PO SCH (08:29)
[2018-08-04] MEDS: Famotidine 20 MG TAB PO SCH ×2 (08:29→20:36)
--- NOTE | 2018-08-04 10:17 | PQF ---
CLINICAL DOCUMENTATION IMPROVEMENT CLARIFICATION FORM: ICD-10 Updated PLEASE DO AN ADDENDUM TO THE PROGRESS NOTE WITH ANY DOCUMENTATION UPDATES OR ADDITIONS AND CARRY THROUGH TO DC SUMMARY. THANK YOU. DATE: 08/04 ATTN: DR. DINA MORGAN Please exercise your independent, professional judgment in responding to the clarification form. Clinical indicators are provided on the bottom of this form for your review. Please check appropriate box(s): [ x ] Encephalopathy: Etiology: [ ] Hypertensive [ ] Metabolic [ ] Toxic [ x ] Septic [ ] Unspecified [ ] Other (please specify) [ ] Other diagnosis [ ] Unable to determine For continuity of documentation, please document condition throughout progress notes and discharge summary. Thank You. CLINICAL INDICATORS - SIGNS / SYMPTOMS / LABS ER PHYSICIAN DOCUMENTATION 08/02: ELDERLY MALE WITH ALTERED MENTAL STATUS & LETHARGY H&P DOCUMENTATION 08/02: HX OF PRESENT ILLNESS: ...HE WAS ALSO INCOHERENT AT HOME. ...PATIENT WAS CONFUSED WHEN I SAW HIM IN THE EMERGENCY ROOM. PHYSICAL EXAM: GENERAL - THE PATIENT IS CURRENTLY TACHYCARDIC, HYPERTENSIVE, FEBRILE, INCOHERENT ASSESSMENT/PLAN: 1) ACUTE ENCEPHALOPATHY, LIKELY D/T SEPSIS; 2) SEPSIS PN 08/03: DX/PLAN: 1) COMPLICATED UTI; 2) ACUTE ENCEPHALOPATHY RISK FACTORS: SEPSIS COMPLICATED UTI TREATMENTS: IV ANTIBIOTICS (MEROPENEM & VANCOMYCIN 08/02 - PRESENT) IVF (NS 08/02 - 08/03) THANK YOU! Cecile (This form is maintained as a part of the permanent medical record) 2014 [employer]. All Rights Reserved Cecile Pritchett RN, BSN [email or web address] Office: [phone] G[facility] HEALTHJuan Carlos
[2018-08-04 15:49] LABS: Vancomycin, Trough 3.8 ug/mL
--- NOTE | 2018-08-04 16:03 | PDOC.PN ---
- Subjective Encounter Start Date: 08/04/18 Encounter Start Time: 15:45 Subjective: f/u for UTI with pseudomonas and L ureteral calculus -: s/p L ureteral stent placement 08/03/18. Overall feels better. -: Benitez catheter in place. - Objective Resuscitation Status: Resuscitation Status FULL:Full Resuscitation MAR Reviewed: Yes Vital Signs & Weight: Vital Signs (12 hours) Temp Pulse Resp BP Pulse Ox 08/04/18 11:54 97.5 F L 69 18 114/68 96 08/04/18 08:00 97.5 F L 80 18 101/62 96 Weight Admit Weight 181 lb 7 oz Weight 181 lb 7 oz I&O: 08/03/18 08/04/18 08/05/18 06:59 06:59 06:59 Intake Total 2065 530 Output Total 1775 1975 Balance 290 -1445 Result Diagrams: 08/04/18 04:00 08/04/18 04:00 Additional Labs: Accuchecks 08/04/18 08/04/18 08/03/18 11:30 04:23 19:21 POC Glucose 112 H 133 H 188 H 08/03/18 16:20 POC Glucose 131 H Microbiology 08/02/18 13:17 Urine voided Urine Culture - Final Pseudomonas aeruginosa 08/03/18 14:46 Renal - Right Bacterial Culture - Preliminary 08/02/18 15:50 Venous blood - Right Arm Blood Culture - Preliminary NO GROWTH AT 48 HOURS 08/02/18 15:50 Venous blood - Left Hand Blood Culture - Preliminary NO GROWTH AT 48 HOURS Laboratory Tests 08/02/18 08/03/18 13:37 04:27 WBC 20.3 H 27.6 H Radiology Reviewed by me: Yes (Echo - severe aortic stenosis, EF 55-60%) Phys Exam - Physical Examination Constitutional: NAD HEENT: PERRLA, sclera anicteric, oral pharynx no lesions Neck: no nodes, no JVD, supple Respiratory: no wheezing, no rales, no rhonchi, clear to auscultation bilateral III/ holosystolic murmur S1, S2 Gastrointestinal: soft, non-tender, no distention, positive bowel sounds Musculoskeletal: no edema, pulses present Neurological: normal sensation, moves all 4 limbs Psychiatric: normal affect, A&O x 3 Skin: no rash, normal turgor, cap refill <2 seconds Dx/Plan (1) Sepsis with acute organ dysfunction Code(s): A41.9 - SEPSIS, UNSPECIFIED ORGANISM; R65.20 - SEVERE SEPSIS WITHOUT SEPTIC SHOCK Status: Acute Comment: Improving, continue Meropenem, saline lock IVF's (2) Complicated UTI (urinary tract infection) Code(s): N39.0 - URINARY TRACT INFECTION, SITE NOT SPECIFIED Status: Acute Comment: Pseudomonas on Ucx, continue Meropenem (3) Staghorn calculus Code(s): N20.0 - CALCULUS OF KIDNEY Status: Chronic Comment: s/p L ureteral stent placement, outpt follow up for extraction (4) Encephalopathy acute Code(s): G93.40 - ENCEPHALOPATHY, UNSPECIFIED Status: Acute Comment: Resolved, secondary to sepsis and UTI (5) Aortic stenosis Code(s): I35.0 - NONRHEUMATIC AORTIC (VALVE) STENOSIS Status: Chronic Comment: Severe by echo results, supportive mgmt, plan for future consideration of TAVR after infectious process resolved - Plan plan discussed w/ family, continue antibiotics, PT/OT, manager social responsibility, out of bed/ambulate Stable overall -: Continue Meropenem another 24h -: OOB/ambulate -: Continue Flomax -: Florastor daily * AM lab: BMP, CBC * Likely home in 24h
[2018-08-04] MEDS: Vancomycin HCl 1.25 GM in Sodium Chloride 0.9% 250 ML 250 ML IVPB SCH (16:27)
[2018-08-04] MEDS ORDERED: Vancomycin HCl 1.75 GM in Sodium Chloride 0.9% 500 ML IVPB SCH (17:00)
[2018-08-04] MEDS: Tamsulosin HCl 0.4 MG CAP PO SCH (20:36)
[2018-08-04] MEDS: Melatonin 3 MG TAB PO SCH (20:36)
[2018-08-04] MEDS: Acetaminophen 325 MG TAB PO PRN (22:55)
--- NOTE | 2018-08-05 02:33 | CON ---
DATE OF CONSULTATION: 08/04/2018 CHIEF COMPLAINTS: 1. Recurrent UTI with systemic inflammatory response syndrome presentation and altered mental status . 2. History of urethral stricture. 3. Left-sided staghorn calculus, status post left stent placement. 4. Prostate nodule and elevated PSA. 5. Aortic valve stenosis. BRIEF HISTORY: Mr. 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 He had a repair performed in [place] and has done relatively well since that. Recently, he developed urinary frequency and frequent small volume void s. The patient eventually developed what appears to have been a SIRS or urosepsis type presentation, was brought to the emergency department at [facility] on 08/02/2018. I evalu ated the patient in the emergency department and was able to place a Benitez catheter at that time. Th e patient improved moderately overnight and was deemed suitable to take to the operating room. We di d take him to the operating room on 08/03/2018 and placed a left-sided stent for the left-sided stagh orn calculus that he had. The patient on physical examination was noted to have an indurated prostat e and he had an elevated PSA on laboratory work as well. His PSA test result returned at 4.7 nanogra ms per mL on 08/03/2018. The patient completed cystoscopic evaluation and stent placement on 018 for his left-sided staghorn calculus. Today, the patient's white count is decreased from the terrence ues on 08/03/2018 and he has been afebrile. He feels much better today. PHYSICAL EXAMINATION: GENERAL: This is a pleasant white male, in no apparent distress. HEENT: Extraocular movements are intact. Sclerae are anicteric. Oropharynx is clear. NECK: Supple. LUNGS: Clear to auscultation bilaterally. CARDIAC: The patient has regular rate and rhythm. There is a prominent grade 5/6 systolic ejection murmur suggesting a relatively narrow annulus or calcification of his aortic valve. The patient has previously seen Dr. Welch of the [facility] and will be undergoing further ou tpatient evaluation with respect to that. ABDOMEN: Soft and nontender. GENITOURINARY: An indwelling Benitez catheter is in place. It is secured to the patient's right leg b y a StatLock type device. Urine in the bag has a trace amount of blood present in it, consistent wit h the patient's recent stent placement and dilation of his urethral stricture. LABORATORY STUDIES: The patient's urine culture from 08/02/2018, which was a clean catch, grew Pseud omonas aeruginosa, which was had a colony count of 75,000-100,000 and was sensitive to aztreonam, ami kacin, cefepime, ceftazidime, ciprofloxacin, gentamicin, levofloxacin, meropenem, penicillin, tazobac yoder and tobramycin. CBC today shows the patient's white count down to 22,100. There is 86% neutrophils. The ANC has dec reased to 19 from 22.9. The patient's hemoglobin is 13 with hematocrit of 42.2. Serum chemistries s how the patient's blood urea nitrogen of 14 and creatinine 0.75. Estimated MDRD glomerular filtratio n rate is 90. ASSESSMENT AND PLAN: 1. Urinary tract infection in systemic inflammatory response syndrome presentation. The patient is fully drained in the left collecting system and his right collecting system was evaluated by cognitiv e evaluation and does not appear to be obstructed. The patient's prostate gland may be involved base d on physical examination and bilateral induration. He has essentially pansensitive Pseudomonas aeru ginosa and could probably be treated with Levaquin at home. 2. Urethral stricture. Plan will be to continue the patient's indwelling Benitez catheter at [facility] to provide adequate drainage of his collecting system and the bladder. The patient has relatively small capacity bladder secondary to chronic outlet obstruction. In addition, the patient has a known urethral stricture and a markedly indurated prostate gland. Probably, he will require a Benitez tasia ter for a longer period of time and I would recommend a voiding trial, we performed in my office as w e have a proper equipment for replacement of a catheter in an acute setting. I discussed with the milena fall this may be a recurrent ongoing problem and intermittent catheterization in the future may be r equired. 3. Benign prostatic hypertrophy, prostate induration and outlet obstruction. The patient should be started on Flomax and finasteride and should be given a long course of antibiotic therapy. I would r ecommend a minimum of 14 days of Levaquin for this patient and would consider a month long course as well, but I will make a formal decision on that when he sees me back in the office. 4. Prostate nodule and elevated PSA. There is no acute need for this patient to undergo any type of biopsy, I think this probably should be delayed until after he has had a long course of antibiotic t herapy first. He certainly has other issues that need to be dealt with first as well. 5. Aortic valve stenosis. The patient would probably be suitable for a TAVR type device when his ki dney stones have been properly cleared and the kidney stones take precedence over aortic valve replac ement since we do not want to contaminate his new hardware. 6. Left-sided kidney stone. This is his staghorn type configuration suggesting that it originated w ith an infection, and I would recommend this be treated by percutaneous nephrolithotomy, which will p robably need to be scheduled through my office at his followup. Over 35 minutes of consultation, assessment, coordination of care time were spent in the evaluation a nd treatment on Mr. Dm Mills today.
[2018-08-05 04:51] LABS: Anion Gap 9 mmol/L (10-20); BUN (Urea Nitrogen) 15 mg/dL (8.4-25.7); Calc. Creatinine Clearance 81 mL/min (70-130); Calcium 8.4 mg/dL (7.8-10.44); Carbon Dioxide 25 mmol/L (23-31); Chloride 112 mmol/L (98-107); Estimated GFR-MDRD Greater than 90; Glucose 119 mg/dL (83-110); Potassium 3.5 mmol/L (3.5-5.1); Sodium 142 mmol/L (136-145)
[2018-08-05] MEDS ORDERED: Vancomycin HCl 1.25 GM in Sodium Chloride 0.9% 250 ML 250 ML IVPB SCH (05:00)
[2018-08-05] MEDS: MEROPENEM 1 GM/50 ML 1 GM in Premix Bag 1 BAG IVPB SCH (05:11)
[2018-08-05 06:21] LABS: Band 16 % (5-11); Eosinophils 2 % (0-10); Hemoglobin 12.8 g/dL (14.0-18.0); Lymphocytes 20 % (21-51); MDiff Complete? YES; Mean Corpuscular HGB CONC 32.2 g/dL (32.0-36.0); Mean Corpuscular Hemoglobin 32.3 pg (27.0-31.0); Mean Platelet Volume 9.4 fL (7.4-10.4); Monocytes 9 % (0-10); Neutrophil 53 % (42-75); Platelet Count 144 thou/uL (130-400); RBC Distribution Width 12.5 % (11.5-14.5); Red Blood Cell (RBC) Count 3.96 mill/uL (4.70-6.10)
[2018-08-05] MEDS ORDERED: Finasteride 5 MG TAB PO SCH (09:00)
[2018-08-05] MEDS: Atorvastatin Calcium 40 MG TAB PO SCH (09:41)
[2018-08-05] MEDS: Saccharomyces boulardii 250 MG CAP PO SCH (09:42)
[2018-08-05] MEDS: Fish Oil 1,000 MG CAP PO SCH (09:42)
[2018-08-05] MEDS: Multivit, Therapeutic 1 TAB PO SCH (09:42)
[2018-08-05] MEDS: Famotidine 20 MG TAB PO SCH (09:42)
[2018-08-05] MEDS: Ubidecarenone 50 MG CAP PO SCH (09:42)
[2018-08-05] MEDS: Enoxaparin Sodium 40 MG/0.4 ML SYRINGE SC SCH (09:47)
--- NOTE | 2018-08-05 14:05 | DIS ---
DATE OF ADMISSION: 08/02/2018 DATE OF DISCHARGE: 08/05/2018 DISCHARGE DIAGNOSES: 1. Sepsis with acute organ dysfunction, resolving. 2. Complicated urinary tract infection with Pseudomonas species. 3. Left ureteral staghorn calculus, status post ureteral stent placement. 4. Acute encephalopathy secondary to sepsis and complicated urinary tract infection, resolving. 5. Severe aortic stenosis. 6. Diabetes mellitus type 2, stable. CONSULTATIONS: Dr. Anand Almaguer with Urology Service. Dr. Welch with Cardiology Service. PERTINENT LABORATORY DATA AND X-RAY FINDINGS: Creatinine ranged between 0.75-0.96, estimated GFR ran ged between 75 to greater than 90. PSA 4.70. CBC showed a white blood cell count ranged between 15- 27.6. Urine culture dated 08/02/2018 showed 75-100,000 colonies of Pseudomonas aeruginosa, pansensit ashley. Blood cultures x2 dated 08/02/2018 showed no growth at 48 hours. Right renal fluid culture brittnee ed 08/03/2018 showed no growth at 24 hours. HOSPITAL COURSE: The patient was admitted after initially presenting with altered mental status with urinary tract infection and sepsis. The patient previously treated with oral Keflex as well as cipr ofloxacin and Omnicef, presenting with sepsis secondarily to urinary tract infection. The patient wa s placed on broad spectrum IV antibiotic therapy to include meropenem and vancomycin. Urine culture showed pseudomonas species pansensitive as stated previously. The patient was evaluated by the Urolo gy service with placement of Benitez catheter for bladder decompression. The patient underwent extensi ve evaluation including CT of the abdomen and pelvis showing obstruction with staghorn calculus in th e left kidney as well as prostate enlargement. The patient underwent cystoscopy with retrograde pyel ogram and eventual left ureteral stent placement. The patient clinically stabilized with IV antibiot ic therapy and IV fluid supplementation. The patient continued on IV meropenem and vancomycin, trans itioning to Levaquin after review of sensitivities on urine culture. The patient was also evaluated by the Cardiology service after concern for aortic stenosis. No specific urgent intervention was rec ommended as the patient has an acute infectious process. The patient likely will need further evalua tion and potential TAVR procedure after completion of antibiotic therapy and resolution of the stagho rn calculus. Overall, the patient did clinically stabilize with supportive management. The patient tolerated regular oral intake, voided appropriately and was noted with stable vital signs. I have ex amined the patient at the time of discharge and discussed followup instructions. The patient and his son verbalized understanding and agreement. The patient ready for discharge on 08/05/2018. DISCHARGE MEDICATIONS: 1. Levaquin 750 mg 1 tab p.o. daily x14 days. 2. Enteric coated aspirin 81 mg 1 tab p.o. daily. 3. Lipitor 80 mg p.o. daily. 4. Vitamin D3 1000 units p.o. daily. 5. Cranberry extract 500 mg p.o. daily. 6. Lactobacillus 1 capsule p.o. b.i.d. 7. Melatonin 10 mg p.o. at bedtime. 8. Metformin 500 mg 1 tab p.o. daily. 9. Multivitamin 1 tab p.o. daily. 10. [place] 3 fatty acid 1 capsule p.o. daily. 11. Coenzyme Q10 200 mg p.o. daily. 12. Proscar 5 mg p.o. daily. 13. Flomax 0.4 mg p.o. at bedtime. FOLLOWUP: The patient to follow up with his primary care provider, Dr. Xavier Eric within 7 days of discharge. The patient will follow up with Dr. Anand Almaguer with Urology Service and to call his [facility] for appointment time and date. CONDITION ON DISCHARGE: Stable. ACTIVITY: ad raya. DIET: ADA. SPECIAL INSTRUCTIONS: Continue Benitez catheter for bladder decompression. CODE STATUS: FULL. DISPOSITION: Home, 08/05/2018. Total time preparing and coordinating discharge is 35 minutes.
[2018-08-05 14:39] VITALS: BP 144/77; TEMP 97.8
== END 2018-08-05 13:16 | disposition home or self-care (01) | DRG 854 ==
LOC: ERS 13:06 → T4-B 14:30
PROVIDERS: ADMIT Internal Medicine; ATTEND Internal Medicine
PROC: 0T778DZ Dilation of Left Ureter with Intraluminal Device, Via Natural or Artificial Opening Endoscopic (ICD-10-PCS; principal; 2018-08-02)
PROC: BT141ZZ Fluoroscopy of Kidneys, Ureters and Bladder using Low Osmolar Contrast (ICD-10-PCS; 2018-08-02)
DX: A41.52 Sepsis due to Pseudomonas (principal); N39.0 Urinary tract infection, site not specified; G93.40 Encephalopathy, unspecified; N13.6 Pyonephrosis; N13.8 Other obstructive and reflux uropathy; I10 Essential (primary) hypertension; E11.9 Type 2 diabetes mellitus without complications; E78.5 Hyperlipidemia, unspecified; I35.0 Nonrheumatic aortic (valve) stenosis; N35.919 Unspecified urethral stricture, male, unspecified site; N40.1 Benign prostatic hyperplasia with lower urinary tract symptoms; R97.20 Elevated prostate specific antigen [PSA]; E86.0 Dehydration; Z88.0 Allergy status to penicillin; Z79.84 Long term (current) use of oral hypoglycemic drugs; Z79.899 Other long term (current) drug therapy
CPT/HCPCS: 36415; 36416; 51702; 74176; 74420; 80048; 80053; 80202; 81003; 81015; 83605; 83690; 84153; 85007; 85025; 85027; 87040; 87070; 87077; 87081; 87086; 87186; 87205; 87430; 93306; 96361; 96365; 96366; 96368; 96375; C1758; C1769; G8978-GP-CI; G8979-GP-CI; G8980-GP-CI; G8987-GO-CI; G8988-GO-CI; G8989-GO-CI; J0696; J1650; J2001; J2060; J2185; J2370; J2704; J3010; J3370; J7050; Q9967